=== PATIENT | male | born 1950 | race Caucasian/White ===

== ENCOUNTER 2016-11-11 11:50 | Emergency (ER) | payer MEDICARE, BC ==
[~2016-11-11 11:50] MED LIST: CURCPOW PO; LANSO15 PO; OMEGCAP21 PO; PROBCAP11
[2016-11-11] MEDS ORDERED: MECLIZINE HCL 25 MG TAB ONE (12:32)
--- NOTE | 2016-11-11 13:37 | PD ---
HPI Chief Complaint: Dizziness Time Seen by Provider: 13:32 Travel History International Travel<30 days: No Contact w/Intl Traveler<30days: No Traveled to known affect area: No History of Present Illness HPI Patient presents with intermittent episodes of dizziness/unsteadiness. First this morning when getting out of his car. Denied any tunnel vision. Denied any nausea vomiting diarrhea or fever. Approximately 45 minutes later he stood while in [place] and experienced similar dizziness however in addition to this he had right arm tingling constant since. He does report some stiffness in his neck for about 6 weeks. He started doing neck exercises over the last 2 days. States she's been sleeping upright secondary to GERD which is aggravated his neck. Denies any right arm tingling denies any slurred speech denies any facial asymmetry denies any headache. He does not take aspirin daily. He is not a diabetic. Does not smoke. Reports a mildly elevated blood pressure last several weeks he does use nasal spray for allergies and weakly nasal irrigation. In addition he complains of right heel plantar fasciitis. PFSH Past Medical History Cancer: Yes (CLL) Cardiovascular Problems: No Diabetes: No Diminished Hearing: No Endocrine: No GERD: Yes Genitourinary: No Hepatitis: No Hiatal Hernia: Yes Immune Disorder: No Musculoskeletal: Yes (ARTHRITIS) Neurologic: No Psychiatric: No Reproductive: No Respiratory: No Immunizations Current: Yes Thyroid Disease: No Past Surgical History Abdominal Surgery: No AICD: No Cardiac Surgery: No Ear Surgery: No Endocrine Surgery: No Eye Surgery: No Genitourinary Surgery: No Joint Replacement: No Oral Surgery: No Pacemaker: No Thoracic Surgery: No Other Surgery: Yes (BACK) Social History Alcohol Use: No Tobacco Use: No Substance Use: No Allergies-Medications (Allergen,Severity, Reaction): Coded Allergies: No Known Allergies (Unverified , 11/11/16) Reported Meds & Prescriptions Reported Meds & Active Scripts Active Reported Curcumin (Turmeric (Curcuma Longa) (Bulk) Pow 1 Tab PO DAILY Hm [place]-3-6-9 Fatty Acid ([place]-3/[place]-6/[place]-9 Fatty Acids) Cap 1 Cap PO DAILY Probiotic (Probiotic Product) Cap Prevacid 15 Mg Solutab (Lansoprazole) 15 Mg Tab 30 Mg PO DAILY Review of Systems General / Constitutional: No: Fever Eyes: No: Visual changes HENT: No: Headaches Cardiovascular: No: Chest Pain or Discomfort Respiratory: No: Shortness of Breath Gastrointestinal: No: Abdominal Pain Genitourinary: No: Dysuria Musculoskeletal: No: Pain Skin: No Rash Neurologic: No: Weakness Psychiatric: No: Depression Endocrine: No: Polydipsia Hematologic/Lymphatic: No: Easy Bruising Physical Exam Narrative GENERAL: No apparent distress alert and oriented SKIN: Focused skin assessment warm/dry. HEAD: Atraumatic. Normocephalic. EYES: Pupils equal and round. No scleral icterus. No injection or drainage. ENT: No nasal bleeding or discharge. Mucous membranes pink and moist. NECK: Trachea midline. No JVD. CARDIOVASCULAR: Regular rate and rhythm. No murmur appreciated. RESPIRATORY: No accessory muscle use. Clear to auscultation. Breath sounds equal bilaterally. GASTROINTESTINAL: Abdomen soft, non-tender, nondistended. Hepatic and splenic margins not palpable. MUSCULOSKELETAL: No obvious deformities. No clubbing. No cyanosis. No edema. Cervical spine examination reveals mild midline tenderness with bilateral paraspinous pain mildly limited range of motion NEUROLOGICAL: Awake and alert. No obvious cranial nerve deficits. Motor grossly within normal limits. Normal speech. PSYCHIATRIC: Appropriate mood and affect; insight and judgment normal. Data Data Orders Orders Meclizine (Antivert) (11/11/16 12:32) Orthostatic Blood Pressure (11/11/16 13:37) Meclizine (Antivert) (11/11/16 13:45) Electrocardiogram (11/11/16 13:40) Complete Blood Count With Diff (11/11/16 13:40) Comprehensive Metabolic Panel (11/11/16 13:40) Urinalysis - C+S If Indicated (11/11/16 13:40) Ct Brain W/O Iv Contrast(Rout) (11/11/16 13:40) Ecg Monitoring (11/11/16 13:40) Iv Access Insert/Monitor (11/11/16 13:40) Oximetry (11/11/16 13:40) Sodium Chloride 0.9% Flush (Ns Flush) (11/11/16 13:45) Labs Laboratory Tests Test 11/11/16 14:09 White Blood Count 5.4 TH/MM3 Red Blood Count 4.91 MIL/MM3 Hemoglobin 14.3 GM/DL Hematocrit 44.0 % Mean Corpuscular Volume 89.8 FL Mean Corpuscular Hemoglobin 29.1 PG Mean Corpuscular Hemoglobin Concent 32.4 % Red Cell Distribution Width 13.2 % Platelet Count 241 TH/MM3 Mean Platelet Volume 7.5 FL Neutrophils (%) (Auto) 67.5 % Lymphocytes (%) (Auto) 20.4 % Monocytes (%) (Auto) 8.0 % Eosinophils (%) (Auto) 1.8 % Basophils (%) (Auto) 2.3 % Neutrophils # (Auto) 3.7 TH/MM3 Lymphocytes # (Auto) 1.1 TH/MM3 Monocytes # (Auto) 0.4 TH/MM3 Eosinophils # (Auto) 0.1 TH/MM3 Basophils # (Auto) 0.1 TH/MM3 CBC Comment DIFF FINAL Differential Comment Urine Color STRAW Urine Turbidity CLEAR Urine pH 5.5 Urine Specific [place] 1.020 Urine Protein NEG mg/dL Urine Glucose (UA) NEG mg/dL Urine Ketones NEG mg/dL Urine Occult Blood NEG Urine Nitrite NEG Urine Bilirubin NEG Urine Leukocyte Esterase NEG Urine RBC 0-3 /hpf Urine WBC 0-2 /hpf Urine Squamous Epithelial Cells 0-5 /hpf Microscopic Urinalysis Comment CULT NOT INDICATED Blood Urea Nitrogen 19 MG/DL Creatinine 1.00 MG/DL Random Glucose 95 MG/DL Total Protein 6.7 GM/DL Albumin 3.5 GM/DL Calcium Level 9.0 MG/DL Alkaline Phosphatase 77 U/L Aspartate Amino Transf (AST/SGOT) 17 U/L Alanine Aminotransferase (ALT/SGPT) 28 U/L Total Bilirubin 0.3 MG/DL Sodium Level 137 MEQ/L Potassium Level 4.3 MEQ/L Chloride Level 104 MEQ/L Carbon Dioxide Level 28.1 MEQ/L Anion Gap 5 MEQ/L Estimat Glomerular Filtration Rate 75 ML/MIN [facility] Medical Decision Making Medical Screen Exam Complete: Yes Emergency Medical Condition: Yes Differential Diagnosis CVA, TIA, cervical radiculopathy, plantar fasciitis, vertigo Narrative Course Assessment and plan discussed with patient and at bedside. Orthostatics performed without any significant findings. Antivert provided with minor improvement of symptoms. EKG reveals sinus bradycardia first-degree AV block rate of 52. CT the head revealed no acute intracranial process. Diagnosis Primary Impression: Vertigo Additional Impressions: Cervical radiculopathy Plantar fasciitis, right Patient Instructions: General Instructions Additional Instructions: Encouraged nonsteroidal anti-inflammatories warm heat gentle stretching and strengthening and massage to cervical spine. Encouraged Antivert as prescribed. Follow-up with PCP to assess need for further workup. Encouraged to return to emergency room with any onset of new symptoms. Med/Other Pt SpecificInfo: Prescription(s) given (Antivert), No Meds Exist/ No RX given Scripts Meclizine (Meclizine) 25 Mg Tab 25 MG PO TID Y for VERTIGO for 30 Days, #10 TAB 0 Refills Prov: Griffin Amador MD 11/11/16 Disposition: 01 DISCHARGE HOME Condition: Good Griffin Amador MD Nov 11, 2016 13:37
[2016-11-11] MEDS ORDERED: SODIUM CHLORIDE 0.9% FLUSH 10 ML FLUSH IVF PRN (13:45)
[2016-11-11] MEDS ORDERED: MECLIZINE HCL 25 MG TAB PO ONE (13:45)
[2016-11-11 14:19] LABS: AUTOMATED NEUTROPHIL # 3.7 TH/MM3 (1.8-7.7); BASOPHIL # 0.1 TH/MM3 (0-0.2); BASOPHIL % 2.3 % (0.0-2.0); EOSINOPHIL # 0.1 TH/MM3 (0-0.4); EOSINOPHIL % 1.8 % (0.0-4.0); HEMO FLAGS DIFF FINAL; LYMPH % 20.4 % (9.0-44.0); LYMPHOCYTE # 1.1 TH/MM3 (1.0-4.8); MEAN CELL VOLUME 89.8 FL (80.0-100.0); MEAN CORPUSCULAR HEMOGLOBIN 29.1 PG (27.0-34.0); MEAN CORPUSCULAR HGB CONC 32.4 % (32.0-36.0); NEUT % 67.5 % (16.0-70.0); PLATELET COUNT 241 TH/MM3 (150-450); RED BLOOD COUNT 4.91 MIL/MM3 (4.50-5.90); RED CELL DISTRIBUTION WIDTH 13.2 % (11.6-17.2); WHITE BLOOD COUNT 5.4 TH/MM3 (4.0-11.0)
[2016-11-11 14:20] LABS: BLOOD, URINE NEG (NEG); GLUCOSE,URINE NEG (NEG); KETONE, URINE NEG (NEG); NITRITE,URINE NEG (NEG); PH, URINE 5.5 (5.0-8.5)
--- NOTE | 2016-11-11 14:29 | RADRPT ---
EXAM DATE/TIME: 11/11/2016 14:19 [place] COMPARISON: No previous studies available for comparison. INDICATIONS : Dizziness. RADIATION DOSE: 64.40 CTDIvol (mGy) MEDICAL HISTORY : Hernia, hiatal. Gastroesophageal reflux disease. SURGICAL HISTORY : None. ENCOUNTER: Initial ACUITY: 1 day PAIN SCALE: 0/10 LOCATION: cranial TECHNIQUE: Multiple contiguous axial images were obtained of the head. Using automated exposure control and adj ustment of the mA and/or kV according to patient size, radiation dose was kept as low as reasonably a chievable to obtain optimal diagnostic quality images. DICOM format image data is available electro nically for review and comparison. FINDINGS: CEREBRUM: The ventricles are normal for age. No evidence of midline shift, mass lesion, hemorrhage or acute in farction. No extra-axial fluid collections are seen. POSTERIOR FOSSA: The cerebellum and brainstem are intact. The 4th ventricle is midline. The cerebellopontine angle i s unremarkable. EXTRACRANIAL: The visualized portion of the orbits is intact. SKULL: The calvaria is intact. No evidence of skull fracture. CONCLUSION: No acute intracranial disease. Newton Brady MD on November 11, 2016 at 14:27 Board Certified Radiologist. This report was verified electronically.
[2016-11-11 14:31] LABS: CHLORIDE 104 MEQ/L (98-107); POTASSIUM 4.3 MEQ/L (3.5-5.1); SODIUM (NA) 137 MEQ/L (136-145)
[2016-11-11 14:35] LABS: ANION GAP 5 MEQ/L (5-15); BICARBONATE 28.1 MEQ/L (21.0-32.0); BLOOD UREA NITROGEN 19 MG/DL (7-18)
[2016-11-11 14:38] LABS: ALT (GPT) 28 U/L (12-78); AST (GOT) 17 U/L (15-37); GLOMERULAR FILTRATION RATE 75 ML/MIN (>89)
[2016-11-11 14:39] LABS: TOTAL BILIRUBIN ADULT 0.3 MG/DL (0.2-1.0)
[2016-11-11 14:40] LABS: ALKALINE PHOSPHATASE 77 U/L (45-117); COMMENT (UR) CULT NOT INDICATED; CULTURE IF INDICATED CULT NOT INDICATED; RBC, URINE 0-3 /hpf (0-3); SQUAMOUS EPITHELIAL CELL URINE 0-5 /hpf (0-5); URINE COLOR STRAW (YELLW/STRAW); WBC, URINE 0-2 /hpf (0-5)
[2016-11-11] MEDS ORDERED: MECL-62 PO (15:45)
[2016-11-11 16:14] VITALS: BP 138/74
--- NOTE | 2016-11-11 20:28 | EKG ---
Date Performed: 11/11/2016 Time Performed: 13:52:36 PTAGE: 66 years EKG: SINUS BRADYCARDIA WITH FIRST DEGREE AV BLOCK ABNORMAL ECG NO PREVIOUS TRACING DOCTOR: Kyler Menchaca Interpretating Date/Time 11/11/2016 20:26:20
== END 2016-11-11 16:17 | disposition home or self-care (01) ==
LOC: PHED 11:50
DX: R42 Dizziness and giddiness (principal); M54.12 Radiculopathy, cervical region; M72.2 Plantar fascial fibromatosis; K21.9 Gastro-esophageal reflux disease without esophagitis; M19.90 Unspecified osteoarthritis, unspecified site; C91.10 Chronic lymphocytic leukemia of B-cell type not having achieved remission; K44.9 Diaphragmatic hernia without obstruction or gangrene
CPT/HCPCS: 70450; 80053; 81001; 85025; 93005; 99285

== ENCOUNTER 2017-07-08 08:49 | Emergency (ER) | payer MEDICARE, BC ==
[~2017-07-08] VITALS: Ht 182.9 cm; Wt 109.0 kg
[~2017-07-08 08:49] MED LIST changes: +MECL-62 PO
[2017-07-08 08:54] VITALS: BP 186/91; PULSE 72; RESP 16; TEMP 97.2; O2SAT 97
[2017-07-08] MEDS ORDERED: GLAUCOMA EYE GTTS (09:16)
[2017-07-08] MEDS ORDERED: OMEGCAP29 PO (09:16)
[2017-07-08] MEDS ORDERED: FLUT1SPR5 EACH NARE (09:16)
[2017-07-08] MEDS ORDERED: VITA100064 PO (09:16)
[2017-07-08] MEDS ORDERED: TURM500C3 PO (09:16)
--- NOTE | 2017-07-08 09:33 | PD ---
HPI Chief Complaint: Abdominal Pain Time Seen by Provider: 09:09 Travel History International Travel<30 days: No Contact w/Intl Traveler<30days: No Traveled to known affect area: No History of Present Illness HPI This 66-year-old male this is a burning type of discomfort in the left midabdomen for about a week and a half. It started after he was kayaking and has been fairly persistent since then. There is been no fever or chills. He described as a burning type of symptom. There is no vomiting or diarrhea. He thinks he might have strained his abdominal muscles while kayaking. He does have a history of CLL and sees Dr. Arnold on a regular basis. His last visit was in March he has no history of abdominal surgery. He has had back surgery and a need hip replacement. he did have shingles several years ago PFSH Past Medical History Cancer: Yes (CLL) Cardiovascular Problems: No Diabetes: No Diminished Hearing: No Endocrine: No GERD: Yes Genitourinary: No Hepatitis: No Hiatal Hernia: Yes Immune Disorder: No Musculoskeletal: Yes (ARTHRITIS) Neurologic: No Psychiatric: No Reproductive: No Respiratory: No Immunizations Current: Yes Thyroid Disease: No Influenza Vaccination: Yes Past Surgical History Abdominal Surgery: No AICD: No Cardiac Surgery: No Ear Surgery: No Endocrine Surgery: No Eye Surgery: No Genitourinary Surgery: No Joint Replacement: No Oral Surgery: No Pacemaker: No Thoracic Surgery: No Other Surgery: Yes (BACK) Social History Alcohol Use: No Tobacco Use: No Substance Use: No Allergies-Medications (Allergen,Severity, Reaction): Coded Allergies: Sulfa (Sulfonamide Antibiotics) (Verified Allergy, Unknown, 07/08/17) Reported Meds & Prescriptions Reported Meds & Active Scripts Active Meclizine (Meclizine HCl) 25 Mg Tab 25 Mg PO TID PRN 30 Days Reported Turmeric (Turmeric (Curcuma Longa)) 450 Mg-50 Mg Cap 1 Tab PO DAILY [facility] ([place] 3 Fatty Lspwi-Obnzlr-Zzrszpffpj) 250-2.5-0.5 Mg Cap 1 Cap PO DAILY Vitamin D3 (Cholecalciferol) 1,000 Unit Tab 1,000 Units PO DAILY [Glaucoma Eye Gtts] Flonase Nasal [place] (Fluticasone Nasal [place]) 50 Mcg/Act [place] 100 Mcg EACH NARE BID Review of Systems General / Constitutional: No: Fever, Chills Eyes: No: Diploplia, Blurred Vision HENT: No: Headaches Cardiovascular: No: Chest Pain or Discomfort Gastrointestinal: Positive: Abdominal Pain Genitourinary: No: Urgency Musculoskeletal: No: Myalgias, Arthralgias Psychiatric: No: Anxiety Physical Exam Narrative GENERAL: Well-developed male SKIN: Focused skin assessment warm/dry. HEAD: Atraumatic. Normocephalic. EYES: Pupils equal and round. No scleral icterus. No injection or drainage. ENT: No nasal bleeding or discharge. Mucous membranes pink and moist. NECK: Trachea midline. No JVD. CARDIOVASCULAR: Regular rate and rhythm. No murmur appreciated. RESPIRATORY: No accessory muscle use. Clear to auscultation. Breath sounds equal bilaterally. GASTROINTESTINAL: Abdomen soft, non-tender, nondistended. Hepatic and splenic margins not palpable. Discomfort is the left midabdomen there are no masses palpable and there is no tenderness on palpation here. There are a few erythematous spots over the skin but not lesions typical of shingles MUSCULOSKELETAL: No obvious deformities. No clubbing. No cyanosis. No edema. NEUROLOGICAL: Awake and alert. No obvious cranial nerve deficits. Motor grossly within normal limits. Normal speech. PSYCHIATRIC: Appropriate mood and affect; insight and judgment normal. Data Data Last Documented VS Vital Signs Date Time Temp Pulse Resp B/P (MAP) Pulse Ox O2 Delivery O2 Flow Rate FiO2 07/08/17 08:54 97.2 72 16 186/91 (122) 97 MDM Medical Decision Making Medical Screen Exam Complete: Yes Emergency Medical Condition: Yes Medical Record Reviewed: Yes Differential Diagnosis Differential includes shingles, muscular strain, intra-abdominal process Narrative Course There is no rash suggestive of shingles at this time though shingles can occur without a rash the nature of the pain is suggestive of shingles. Give this a little more time and see if it resolves. He may think it may be related to the prolonged kayaking he did 10 days ago. Patient is stable for discharge Diagnosis Primary Impression: Abdominal pain Additional Instructions: Return if pain does not resolve Disposition: 01 DISCHARGE HOME Condition: Stable Jose Mascorro MD Jul 08, 2017 09:33
== END 2017-07-08 10:01 | disposition home or self-care (01) ==
LOC: PHED 08:49
DX: R10.9 Unspecified abdominal pain (principal); C91.10 Chronic lymphocytic leukemia of B-cell type not having achieved remission; K21.9 Gastro-esophageal reflux disease without esophagitis; M19.90 Unspecified osteoarthritis, unspecified site
CPT/HCPCS: 99281